=== PATIENT | male | born 1950 | race Caucasian/White ===

== ENCOUNTER 2020-05-30 07:43 | Day surgery (SDC) | payer MEDICARE, OTHER ==
[2020-05-30] MEDS ORDERED: Albuterol 8 GM Inhaler INH ONE (07:44)
[2020-05-30] MEDS ORDERED: Rocuronium 50 MG/5 ML Vial IV ONE (07:44)
[2020-05-30] MEDS ORDERED: Ketorolac 30 MG/ML SDV IVPUSH ONE (07:44)
[2020-05-30] MEDS ORDERED: Lactated Ringers 1,000 ML IV ONE (07:44)
[2020-05-30] MEDS ORDERED: Dexamethasone 4 MG/ML 5 ML MDV IVPUSH ONE (07:44)
[2020-05-30] MEDS ORDERED: Propofol 200 MG/20 ML SDV IV ONE (07:44)
[2020-05-30] MEDS ORDERED: fentaNYL 100 MCG/2 ML SDV IV ONE (07:44)
[2020-05-30] MEDS ORDERED: Ondansetron 4 MG/2 ML SDV IVPUSH ONE (07:44)
[2020-05-30] MEDS ORDERED: Midazolam 1 MG/ML 2 ML SDV IV ONE (07:44)
[2020-05-30] MEDS ORDERED: Labetalol 100 MG/20 ML MDV IV ONE (07:44)
[2020-05-30] MEDS ORDERED: Sodium Chloride 0.9% 10 ML Syringe FLUSH PRN (08:00)
[2020-05-30] MEDS ORDERED: Lactated Ringers 1,000 ML IV SCH (08:00)
[2020-05-30] MEDS ORDERED: Albuterol/Ipratropium 3.0-0.5 MG/3 ML Neb Soln NEB ONE ×2 (09:38→11:25)
[2020-05-30] MEDS ORDERED: Scopolamine 1.5 MG Transdermal Patch TRDERM ONE (09:38)
--- NOTE | 2020-05-30 09:49 | PCM.PN ---
- General Info Date of Service: 05/30/20 - Review of Systems Systems Review Comment:: 69-year-old male with known cholelithiasis here for cholecystectomy. He has been having symptoms of abdominal bloating and nausea. Work-up has not identified any other source for symptoms. Patient is medically stable to proceed today. His recent history and physical and other evaluations are reviewed and no significant changes are noted. I have discussed the proposed cholecystectomy with the patient. Risks and expectations discussed. He agrees to proceed. His questions were answered. - Patient Data Weight - Most Recent: 274 lb 3.2 oz Lab Results Last 24 Hours: Laboratory Results - last 24 hr 05/30/20 Range/Units 08:59 POC Glucose 104 H (74-100) mg/dL Med Orders - Current: Current Medications Lactated Ringer's (Ringers, Lactated) 1,000 mls @ 125 mls/hr IV ASDIRECTED LESLI Last Admin: 05/30/20 09:15 Dose: 125 mls/hr Documented by: Cefazolin Sodium 3 gm/ Sodium (Chloride) 100 mls @ 200 mls/hr IV ONETIME ONE Stop: 05/30/20 09:59 Last Admin: 05/30/20 09:23 Dose: 200 mls/hr Documented by: Sodium Chloride (Saline Flush) 10 ml FLUSH ASDIRECTED PRN PRN Reason: Keep Vein Open Discontinued Medications Albuterol/Ipratropium (Duoneb 3.0-0.5 Mg/3 Ml) 3 ml NEB ONETIME ONE Stop: 05/30/20 09:39 Last Admin: 05/30/20 09:44 Dose: 3 ml Documented by: Scopolamine (Transderm-Scop) 1.5 mg TRDERM ONETIME ONE Stop: 05/30/20 09:39 Last Admin: 05/30/20 09:43 Dose: 1.5 mg Documented by: - Problem List Review Problem List Initiated/Reviewed/Updated: Yes - My Orders Last 24 Hours: My Active Orders 05/30/20 Breakfast Nothing Per Oral Diet [DIET] 05/30/20 08:00 Patient Status [ADT] Routine Blood Glucose Check, Bedside [RC] ONETIME Patient to Empty Bladder [RC] ASDIRECTED RT Incentive Spirometry [RC] ASDIRECTED Verify Patient Consent Obtain [RC] ASDIRECTED Lactated Ringers [Ringers, Lactated] 1,000 ml IV ASDIRECTED Sodium Chloride 0.9% [Saline Flush] 10 ml FLUSH ASDIRECTED PRN Peripheral IV Insertion Adult [OM.PC] Routine Sequential Compression Device [OM.PC] Routine 05/30/20 09:30 ceFAZolin [Ancef] 3 gm Sodium Chloride 0.9% [Normal Saline] 100 ml IV ONETIME - Assessment Assessment:: Symptomatic cholelithiasis - Plan Plan:: Cholecystectomy
[2020-05-30] MEDS ORDERED: Bupivacaine 0.5%/EPINEPHrine 1:200,000 50 ML MDV INJECT ONE (10:26)
--- NOTE | 2020-05-30 11:26 | PCM.OPNOTE ---
- General Post-Op/Procedure Note Date of Surgery/Procedure: 05/30/20 Operative Procedure(s): Laparoscopic Cholecystectomy Findings: Chronically inflamed gallbladder Structures otherwise appear normal Pre Op Diagnosis: Symptomatic Cholelithiasis Post-Op Diagnosis: Same Anesthesia Technique: General ET Tube Primary Surgeon: Misael Pruett Pathology: gallbladder EBL in mLs: 20 Complications: None Condition: Good
[2020-05-30] MEDS ORDERED: Midazolam 1 MG/ML 2 ML SDV IVPUSH ONE (12:07)
--- NOTE | 2020-05-30 12:55 | OR ---
DATE OF OPERATION: 05/30/2020 SURGEON: Misael Pruett MD PREOPERATIVE DIAGNOSIS: Symptomatic cholelithiasis. POSTOPERATIVE DIAGNOSIS: Symptomatic cholelithiasis. OPERATION PERFORMED: Laparoscopic cholecystectomy. INDICATIONS FOR SURGERY: This 69-year-old male has been having persistent symptoms of postprandial nausea and abdominal bloating. He is known to have cholelithiasis which was felt to be the source of the symptoms and he comes for cholecystectomy. FINDINGS: The gallbladder does show some chronic inflammation, but otherwise appears normal externally. The adjacent liver and other intraabdominal organs also appeared normal as viewed laparoscopically. PROCEDURE IN DETAIL: The patient was taken to the operating room. He was given general endotracheal anesthesia and the abdomen was sterilely prepped and draped. A supraumbilical stab wound incision was made. Through this, a Veress needle was inserted and pneumoperitoneum via this needle to a pressure of 15 mmHg was achieved with carbon dioxide. The Veress needle was then replaced with a 12-mm trocar into which the 5-mm laparoscopic camera was inserted. Under direct visualization, 5-mm trocars were placed in the subxiphoid midline and in 2 areas of the right abdomen. All trocar sites were infiltrated with Marcaine prior to incision. Intra-abdominal inspection was carried out and attention was turned to the gallbladder. It was secured with grasping forceps placed through the lateral trocars and retracted superiorly and anteriorly. Fatty tissue overlying the cystic duct was carefully cleared until the cystic duct was exposed. Additional dissection in the triangle of Calot identified the cystic artery including multiple small branches of the artery. These are each clipped and divided as encountered. Once triangle of Calot had been cleared and the cystic duct had been clearly and positively identified, it was milked and doubly clipped and divided near the gallbladder with great care being used to avoid any injury or compromise to the common bile duct. The gallbladder was then dissected free from the undersurface of liver using the cautery device and then extracted through the umbilical trocar site. Reinspection of the operative region was carried out and full hemostasis is assured with the use of electrocautery. With no sign of bleeding or any other complication, the trocars were removed under direct visualization and the pneumoperitoneum was evacuated. The fascia of the umbilical trocar site was closed with Vicryl suture. Wounds were irrigated with Betadine and saline solution. Skin incisions approximated with interrupted 4-0 Vicryl in subcuticular stitch. Benzoin and Steri-Strips were applied followed by antibiotic ointment and sterile dressings. Patient was awakened, extubated, and taken from the operating room in satisfactory condition. ESTIMATED BLOOD LOSS: 20 mL. COMPLICATIONS: None. PROGNOSIS: Good. /[id number]
== END 2020-05-30 13:58 | disposition home or self-care (01) ==
LOC: FB.SDS 07:43
PROVIDERS: ATTEND Surgery
DX: K80.10 Calculus of gallbladder with chronic cholecystitis without obstruction (principal); I10 Essential (primary) hypertension; E11.9 Type 2 diabetes mellitus without complications; Z98.890 Other specified postprocedural states; Z79.82 Long term (current) use of aspirin; Z79.899 Other long term (current) drug therapy; Z88.7 Allergy status to serum and vaccine; Z79.84 Long term (current) use of oral hypoglycemic drugs
CPT/HCPCS: 00790-QZ; 82962; 88304; 94150; A9270-GY; J0690; J1100; J1885; J2250; J2405; J2704; J3010; J3490; J7120; J7620-GY